=== PATIENT | female | born 1990 | race Caucasian/White ===

== ENCOUNTER 2020-12-23 12:45 | Outpatient (RCR) | payer SELFPAY, OTHER ==
--- NOTE | 2021-01-06 13:44 | HP.PTEVAL_ITS ---
Patient's Visit Information WAQAS VELA is a 30 year old F referred to Physical Therapy by Dr. Marilyn Guardado DO with a diagnosis of R knee OA with HX of hardward of R femur. Date of Evaluation: 12/23/20 Physical Therapist: Oscar Rao DPT - Visit Plan Frequency: 1x/Week Duration: 2-4 Weeks Plan: I gave her exercises focusing on hip/core, quad, and HS strength to complete independently. She is to get a brace from physician, personnel and payroll technician brace. Pt. desires to complete independently. I will leave case open for a few weeks. If I do not hear from her in the next few weeks I will DC back to physician. - Subjective Pt. is here today for her initial evaluation with diagnosis of Right knee OA with histroy of hardware of R femur. Pt. reports having a R femur fracture in her teens while snow boarding. She is now noticing increased difficulty with playing sports with her children. Pt. reports difficulty hiking, prolonged walking, playing basketball/volleyball and with running. She is able to do her ADLs and IADLs with minimal issues. She has been wearing a light over the counter brace with not much results. She is scheduled to get another brace, personnel and payroll technician brace from physician. She denies N/T in either LE. SHe does have popping in her knee at times, especially with squating. No issues at night. She does feel weak at time and does occassionally give out on her during aggressive exercises/activities. Pt. is hopeful to increase her strength and decreased symptoms allowing her to return to all sporting activities with her children without issues. - Pain R knee Pain Intensity (Out of 10): 1 Pain Intensity Range: 0, 5 Comment: increases with activity - Objective POSTURE: Pt. has decent posture in stance. She has slight wt. shift to L side. Normal iliac crest heights. Pt. good knee extension during stance. PALPATION: Pt. has mild pain at lateral joint line, but overall not intense pain with palpation. NEURO: Normal sensation and DTR of BLEs. ROM: L knee: 0-0-138deg. R knee 0-0-132deg. No pain with overpressures into flexion and extension. Pt. has normal quad and HS length and symmetrical. MMT: RLE: ankle 5/5 throughout; knee: ext 5-/5, HS 4+/5; hip: flexion 4/5, adb 4/5, ext 4+/5, IR 18#, ER 26#. LLE: 5/5 throughout LLE, hip IR 25#, ER 29#. SQUATING: Pt. does have increased pain with squating and noticable crepitus at lateral aspect of her knee, reduced with more ER hip positioning with squating. GAIT: normal gait pattern noted. STAIRS: Pt. has normal pattern, but does report increased pain with loaded eccentric lowering on RLE. - Goals Goal 1:: LTG: Pt. to be I with HEP. Goal Time Frame: 4-6 Weeks Goal 2:: LTG: Pt. to have increased RLE strength by 1 grade throughout effected musclature. Goal Time Frame: 4-6 Weeks Goal 3:: LTG: Pt. to complete all sporting activities and recreational activities with 0-2/10 pain in R knee. Goal Time Frame: 4-6 Weeks Goal 4:: LTG: Pt. to be able to squat with normal pattern and 0-2/10 pain in R knee. Goal Time Frame: 4-6 Weeks - Rehabilitation Potential Physical Therapy Diagnosis: Pt. has signs and symptoms consistent with R knee OA of lateral complartment. She has some instability with dynamic movements and difficulty with loaded flexed positioning. Pt. would benefit from PT to get exercises to assist with knee stability and adn overall strength. Rehabilitation Potential: Excellent - Anticipated Interventions Patient/Client Instruction: Educate patient on: Condition, Plan of Care, Risk Factors, Benefits of Fitness Program For the Purpose of:: To improve self management, To prevent re-injury, To improve ability to perform tasks related to life management, To improve tolerance to ADL's Therapeutic Exercise to Include: Strength training, Power training, Coordination, Agility training, Body mechanics, Passive ROM, Active ROM, Dynamic Lumbar Stabilization For the Purpose of:: To decrease pain, To increase ROM, To improve nutrient delivery to tissue, To increase oxygenation perfusion, To improve muscle performance and motor function, To improve ability to perform ADL's, To improve health of tissue, To decrease soft tissue restriction, To increase flexibility/ROM Thank you for the opportunity to evaluate your patient. For Medicare and Medicare HMO plans, please review the plan of care and approve it. It will need to be FAXED BACK to us at [phone] for Medicare purposes. For Medicare only, by signing this I certify the plan of care. Please let me know if there are questions or concerns regarding this plan of care. Physician Signature: Date:
== END 2020-12-23 19:00 | disposition home or self-care (01) ==
LOC: PT 12:45
PROVIDERS: PCP Family Medicine; Referring Provider Orthopaedic Surgery; Visit Provider Orthopaedic Surgery
DX: M17.11 Unilateral primary osteoarthritis, right knee (principal)
CPT/HCPCS: 97110; 97161

== ENCOUNTER → 2025-01-14 | Outpatient (CLI) | payer OTHER, SELFPAY ==
--- NOTE | 2025-01-14 12:50 | RAD_ITS ---
PROCEDURE: ANKLE MIN 3 VIEWS 01/14/2025 REASON FOR EXAM: PAIN TECHNIQUE: 3 views of the left ankle COMPARISON: None FINDINGS: Bones: Unremarkable Joints: Unremarkable Soft tissues: Soft tissues are unremarkable. Other: RAD/Ankle min 3 Views IMPRESSION: NEGATIVE ANKLE SERIES Reading Location: [place] [id number]
== END | disposition home or self-care (01) ==
PROVIDERS: PCP Family Medicine; Referring Provider Physician Assistant; Visit Provider Physician Assistant
DX: M25.572 Pain in left ankle and joints of left foot (principal)
CPT/HCPCS: 73610